=== PATIENT | female | born 1945 | race Caucasian/White ===

== ENCOUNTER 2017-07-16 08:32 | Day surgery (SDC) | payer OTHER ==
[2017-07-16 09:17] VITALS: BMI 23.2
[2017-07-16] MEDS ORDERED: PROPOFOL 20 ML ONE ×2 (09:23)
--- NOTE | 2017-07-16 10:14 | PROC ---
Endoscopy Procedure Endoscopy procedure completed. Please see scanned procedure report.
[2017-07-16 10:16] VITALS: TEMP 97.5
[2017-07-16 10:58] VITALS: BP 110/58; PULSE 62
--- NOTE | 2017-07-17 16:39 | PATH ---
Surgical Pathology Report Patient Name: ZULMA TUTTLE [facility]. Rec. #: [id number] /Age/Gender: 1945 (Age: 72) / F Account: [id number] Location: [facility]-ENDOSCOPY Taken: 07/16/2017 Received: 07/16/2017 Reported: 07/17/2017 Physicians: Zachariah Abbasi M.D. Specimen(s) Received BX ASCENDING COLON POLYP Clinical History Preoperative diagnosis: Colon cancer screening Postoperative diagnosis: Ascending colon polyp Final Diagnosis ASCENDING COLON, POLYP, POLYPECTOMY: TUBULAR ADENOMA. Electronically Signed Zulma Greene M.D. Gross Description Received in formalin, labeled "biopsy ascending colon" is a avina, irregular portion of soft tissue measuring 1.0 cm. in greatest dimension. The specimen is submitted in toto in one cassette. 07/16/201707/16/2017
== END 2017-07-16 10:58 | disposition home or self-care (01) ==
LOC: JASU-ENDO 08:32
PROVIDERS: ATTEND Internal Medicine Gastroenterology
PROC: 0DBK8ZX Excision of Ascending Colon, Via Natural or Artificial Opening Endoscopic, Diagnostic (ICD-10-PCS; principal; 2017-07-16 09:00)
DX: Z12.11 Encounter for screening for malignant neoplasm of colon (principal); D12.2 Benign neoplasm of ascending colon; K64.8 Other hemorrhoids
CPT/HCPCS: 88305-TC

== ENCOUNTER 2020-07-18 09:18 | Day surgery (SDC) | payer OTHER ==
[2020-07-12 14:03] VITALS: BMI 22.8
[2020-07-18] MEDS ORDERED: PROPOFOL 20 ML ONE ×2 (10:09)
[2020-07-18] MEDS ORDERED: LIDOCAINE HCL/PF 2% SDV 5ML VIAL ONE (10:09)
[2020-07-18 12:02] VITALS: BP 120/72; PULSE 70; TEMP 98
== END 2020-07-18 12:02 | disposition home or self-care (01) ==
LOC: FASU-ENDO 09:18
PROVIDERS: ATTEND Internal Medicine Gastroenterology
PROC: 0DJD8ZZ Inspection of Lower Intestinal Tract, Via Natural or Artificial Opening Endoscopic (ICD-10-PCS; principal; 2020-07-18 10:44)
DX: Z86.010 Personal history of colon polyps (principal); K64.2 Third degree hemorrhoids; Z80.0 Family history of malignant neoplasm of digestive organs

== ENCOUNTER 2021-12-11 09:21 | Day surgery (SDC) | payer OTHER ==
[2021-12-04 15:09] VITALS: BMI 21.1
[2021-12-11 12:14] VITALS: TEMP 97.5
[2021-12-11 12:25] VITALS: BP 112/64; PULSE 68
== END 2021-12-11 12:51 | disposition home or self-care (01) ==
LOC: FASU-ENDO 09:21
PROVIDERS: ATTEND Internal Medicine Gastroenterology
PROC: 0DJD8ZZ Inspection of Lower Intestinal Tract, Via Natural or Artificial Opening Endoscopic (ICD-10-PCS; principal; 2021-12-11 11:44)
DX: Z12.11 Encounter for screening for malignant neoplasm of colon (principal); K64.1 Second degree hemorrhoids; K57.30 Diverticulosis of large intestine without perforation or abscess without bleeding; R19.4 Change in bowel habit
CPT/HCPCS: C9803-CS; U0003; U0005